=== PATIENT | female | born 1965 | race Caucasian/White ===

== ENCOUNTER 2016-04-19 00:49 | Emergency (ER) | payer SELFPAY ==
[~2016-04-19 00:49] MED LIST: DILA100C PO
== END 2016-04-19 00:57 | disposition left against medical advice (07) ==
LOC: NEDAMB 00:49
DX: R68.89 Other general symptoms and signs (principal)
CPT/HCPCS: 99281

== ENCOUNTER 2016-09-06 02:57 | Inpatient (IN) | payer SELFPAY ==
[~2016-09-06] VITALS: Ht 165.1 cm; Wt 72.7 kg
[2016-09-06 03:05] VITALS: BP 147/79; PULSE 84; RESP 18
[2016-09-06] MEDS ORDERED: SODIUM CHLORIDE 0.9% FLUSH 10 ML FLUSH IVF PRN (03:15)
[2016-09-06] MEDS ORDERED: LORazepam 2 MG/ML VIAL IVS ONE (03:15)
[2016-09-06] MEDS ORDERED: THIAMINE INJ 100 MG in SODIUM CHLORIDE 0.9% INJ 100 ML IV ONE (03:15)
[2016-09-06 03:17] LABS: AUTOMATED NEUTROPHIL # 2.8 TH/MM3 (1.8-7.7); BASOPHIL # 0.1 TH/MM3 (0-0.2); EOSINOPHIL # 0.1 TH/MM3 (0-0.4); EOSINOPHIL % 1.3 % (0.0-4.0); HEMATOCRIT 41.4 % (35.0-46.0); LYMPH % 46.1 % (9.0-44.0); MEAN CELL VOLUME 91.4 FL (80.0-100.0); MEAN CORPUSCULAR HEMOGLOBIN 30.4 PG (27.0-34.0); MEAN CORPUSCULAR HGB CONC 33.3 % (32.0-36.0); MONO % 6.9 % (0.0-8.0); NEUT % 43.7 % (16.0-70.0); PLATELET COUNT 107 TH/MM3 (150-450); RED BLOOD COUNT 4.53 MIL/MM3 (4.00-5.30); RED CELL DISTRIBUTION WIDTH 13.6 % (11.6-17.2); WHITE BLOOD COUNT 6.4 TH/MM3 (4.0-11.0)
[2016-09-06 03:18] LABS: HEMO FLAGS DIFF FINAL
--- NOTE | 2016-09-06 03:19 | PD ---
HPI Chief Complaint: seizure Time Seen by Provider: 03:01 Travel History International Travel<30 days: No Contact w/Intl Traveler<30days: No Traveled to known affect area: No History of Present Illness HPI The patient is a 50-year-old female who comes in having had a seizure for approximately 10 minutes duration. Apparently, she has been denied any kind of disability insurance and she cannot afford the Dilantin medication and has not been taking it as prescribed and has not taken it in the last 4 days. She has also been drinking alcohol. She does have a history of alcohol abuse. She has been drinking alcohol tonight. There apparently has been no head injury. The patient has no insurance, no primary care physician and no neurologist. PFSH Past Medical History Autoimmune Disease: Yes Cancer: No Cardiovascular Problems: No Diminished Hearing: No Endocrine: No Gastrointestinal Disorders: Yes GERD: No Genitourinary: No Headaches: Yes Immune Disorder: No Musculoskeletal: Yes Neurologic: Yes Psychiatric: No Respiratory: No Immunizations Current: Yes Migraines: Yes Seizures: Yes Ulcer: No Past Surgical History Hysterectomy: Yes Social History Alcohol Use: Yes (SOCIALLY) Tobacco Use: Yes (1PP3 DAYS) Substance Use: No Allergies-Medications (Allergen,Severity, Reaction): Coded Allergies: Penicillin (Verified Allergy, Severe, 03/03/16) Reported Meds & Prescriptions Reported Meds & Active Scripts Active Dilantin (Phenytoin Extended) 100 Mg Cap 100 Mg PO BID Review of Systems ROS Limitations: Intoxication, Altered Mental Status, Poor Historian Except as stated in HPI: all other systems reviewed are Neg Physical Exam Exam Limitations: Poor Historian Narrative GENERAL: The patient comes in actively seizing but the seizure ceased within a minute of the here in the emergency department. The vital signs show blood pressure 147/79 but are otherwise normal. SKIN: Focused skin assessment warm/dry. No needle tracks nor wrist slash [place] are present. HEAD: Atraumatic. Normocephalic. EYES: Pupils equal and round. No scleral icterus. No injection or drainage. ENT: No nasal bleeding or discharge. Mucous membranes pink and moist. NECK: Trachea midline. No JVD. CARDIOVASCULAR: Regular rate and rhythm. No murmur appreciated. RESPIRATORY: No accessory muscle use. Clear to auscultation. Breath sounds equal bilaterally. GASTROINTESTINAL: Abdomen soft, non-tender, nondistended. Hepatic and splenic margins not palpable. MUSCULOSKELETAL: No obvious deformities. No clubbing. No cyanosis. No edema. NEUROLOGICAL: Awake but lethargic and confused. No obvious cranial nerve deficits. Motor grossly within normal limits.slurred speech. Data Data Last Documented VS Vital Signs Date Time Temp Pulse Resp B/P Pulse Ox O2 Delivery O2 Flow Rate FiO2 09/06/16 03:07 09/06/16 03:05 18 98 09/06/16 03:05 84 Orders Complete Blood Count With Diff (09/06/16 03:01) Alcohol (Ethanol) (09/06/16 03:01) Phenytoin (Dilantin) (09/06/16 03:01) Drug Screen, Random Urine (09/06/16 03:01) Electrocardiogram (09/06/16 ) Ct Brain W/O Iv Contrast(Rout) (09/06/16 ) Blood Glucose (09/06/16 03:01) Ecg Monitoring (09/06/16 03:01) Iv Access Insert/Monitor (09/06/16 03:01) Oximetry (09/06/16 03:01) Comprehensive Metabolic Panel (09/06/16 03:01) Sodium Chloride 0.9% Flush (Ns Flush) (09/06/16 03:15) Lorazepam Inj (Ativan Inj) (09/06/16 03:15) Thiamine Inj (Thiamine Inj) (09/06/16 03:15) Urinalysis - C+S If Indicated (09/06/16 03:01) Fosphenytoin Inj (Cerebyx Inj) (09/06/16 03:30) Beta Hcg (Quant/Titer) (09/06/16 03:01) Urinary Catheter Insert/Apply (09/06/16 03:19) Labs Laboratory Tests Test 09/06/16 09/06/16 03:05 04:15 White Blood Count 6.4 TH/MM3 Red Blood Count 4.53 MIL/MM3 Hemoglobin 13.8 GM/DL Hematocrit 41.4 % Mean Corpuscular Volume 91.4 FL Mean Corpuscular Hemoglobin 30.4 PG Mean Corpuscular Hemoglobin 33.3 % Concent Red Cell Distribution Width 13.6 % Platelet Count 107 TH/MM3 Mean Platelet Volume 15.8 FL Neutrophils (%) (Auto) 43.7 % Lymphocytes (%) (Auto) 46.1 % Monocytes (%) (Auto) 6.9 % Eosinophils (%) (Auto) 1.3 % Basophils (%) (Auto) 2.0 % Neutrophils # (Auto) 2.8 TH/MM3 Lymphocytes # (Auto) 3.0 TH/MM3 Monocytes # (Auto) 0.4 TH/MM3 Eosinophils # (Auto) 0.1 TH/MM3 Basophils # (Auto) 0.1 TH/MM3 CBC Comment DIFF FINAL Differential Comment Sodium Level 148 MEQ/L Potassium Level 3.5 MEQ/L Chloride Level 116 MEQ/L Carbon Dioxide Level 20.7 MEQ/L Anion Gap 11 MEQ/L Blood Urea Nitrogen 20 MG/DL Creatinine 0.82 MG/DL Estimat Glomerular Filtration 73 ML/MIN Rate Random Glucose 106 MG/DL Calcium Level 8.5 MG/DL Total Bilirubin 0.1 MG/DL Aspartate Amino Transf 20 U/L (AST/SGOT) Alanine Aminotransferase 19 U/L (ALT/SGPT) Alkaline Phosphatase 110 U/L Total Protein 7.7 GM/DL Albumin 3.7 GM/DL Human Chorionic Gonadotropin, 8 MIU/ML Quant Phenytoin (Dilantin) Level LESS THAN 0.4 MCG/ML Ethyl Alcohol Level 131 MG/DL Urine Color STRAW Urine Turbidity CLEAR Urine pH 5.5 Urine Specific [place] 1.007 Urine Protein NEG mg/dL Urine Glucose (UA) NEG mg/dL Urine Ketones NEG mg/dL Urine Occult Blood NEG Urine Nitrite NEG Urine Bilirubin NEG Urine Leukocyte Esterase NEG Urine RBC 0-2 /hpf Urine WBC 0-2 /hpf Urine Squamous Epithelial 0-5 /hpf Cells Urine Bacteria NONE /hpf Microscopic Urinalysis Comment CATH-CULT NOT IND Urine Opiates Screen NEG Urine Barbiturates Screen NEG Urine Amphetamines Screen NEG Urine Benzodiazepines Screen NEG Urine Cocaine Screen NEG Urine Cannabinoids Screen POS [facility] Medical Decision Making Medical Screen Exam Complete: Yes Emergency Medical Condition: Yes Medical Record Reviewed: Yes Interpretation(s) The phenytoin level was essentially 0. The alcohol level is 131. The CBC is normal. The complete metabolic profile shows a sodium of 148, bicarbonate 20.7 , BUN of 20, GFR of 73 but is otherwise unremarkable. The beta-hCG is 8. The patient has had a hysterectomy and the low beta titer is likely from other causes. Differential Diagnosis Seizure disorder, hypoglycemia, electrolyte disorder, noncompliance to seizure medications, alcohol intoxication, other drug intoxication, head trauma Narrative Course It is now 0350 and the patient is awake, alert and cursing. She has noncompliance to seizure medications and alcohol intoxication. Plan: The patient will be admitted to the [facility] service. She is getting fosphenytoin at this time. She is already received 2 mg of Ativan IV. The patient is admitted to Dr. Whatley, I discussed the patient with him. The patient is at risk for continued seizures, she cannot afford her medication and will not purchase her medication even if she has prescriptions. She is also at risk for seizures later from alcohol withdrawal, the alcohol level was elevated here at 131. Physician Communication Physician Communication I discussed the patient with Dr. Whatley. Diagnosis Primary Impression: Seizure disorder Additional Impressions: Noncompliance with medications Alcohol abuse Admitting Information Admitting Physician Requests: Dominguez Veloz MD Sep 06, 2016 03:19
[2016-09-06 03:24] LABS: CHLORIDE 116 MEQ/L (98-107); POTASSIUM 3.5 MEQ/L (3.5-5.1); SODIUM (NA) 148 MEQ/L (136-145)
[2016-09-06 03:28] LABS: ANION GAP 11 MEQ/L (5-15); BICARBONATE 20.7 MEQ/L (21.0-32.0); BLOOD UREA NITROGEN 20 MG/DL (7-18)
[2016-09-06] MEDS ORDERED: FOSPHENYTOIN INJ 1,000 MGPE in SODIUM CHLORIDE 0.9% INJ 50 ML IV ONE (03:30)
[2016-09-06 03:31] LABS: ALT (GPT) 19 U/L (10-53); AST (GOT) 20 U/L (15-37); GLOMERULAR FILTRATION RATE 73 ML/MIN (>89)
[2016-09-06 03:32] LABS: TOTAL BILIRUBIN ADULT 0.1 MG/DL (0.2-1.0)
[2016-09-06 03:34] LABS: ALKALINE PHOSPHATASE 110 U/L (45-117)
[2016-09-06 03:36] LABS: BETA HCG QUANT 8 MIU/ML (0-5)
[2016-09-06 04:28] LABS: BLOOD, URINE NEG (NEG); GLUCOSE,URINE NEG (NEG); KETONE, URINE NEG (NEG); NITRITE,URINE NEG (NEG); PH, URINE 5.5 (5.0-8.5)
[2016-09-06 04:31] LABS: URINE COLOR STRAW (YELLW/STRAW)
[2016-09-06 04:34] LABS: COMMENT (UR) CATH-CULT NOT IND; CULTURE IF INDICATED CATH CULTURE NOT IND; RBC, URINE 0-2 /hpf (0-3); SQUAMOUS EPITHELIAL CELL URINE 0-5 /hpf (0-5); WBC, URINE 0-2 /hpf (0-5)
[2016-09-06 04:38] LABS: AMPHETAMINE, URINE NEG (NEG); BARBITURATES, URINE NEG (NEG); COCAINE, URINE NEG (NEG)
[2016-09-06] MEDS ORDERED: ASPI325T PO (04:42)
[2016-09-06] MEDS ORDERED: CAFF200T PO (04:42)
--- NOTE | 2016-09-06 04:48 | RADRPT ---
EXAM DATE/TIME: 09/06/2016 04:11 [facility] COMPARISON: CT BRAIN W/O CONTRAST, March 03, 2016, 23:23. INDICATIONS : Seizure. Altered mental status. RADIATION DOSE: 63.45 CTDIvol (mGy) MEDICAL HISTORY : Seizures. SURGICAL HISTORY : Hysterectomy. ENCOUNTER: Initial ACUITY: 1 day PAIN SCALE: 0/10 LOCATION: cranial TECHNIQUE: Multiple contiguous axial images were obtained of the head. Using automated exposure control and adj ustment of the mA and/or kV according to patient size, radiation dose was kept as low as reasonably a chievable to obtain optimal diagnostic quality images. DICOM format image data is available electro nically for review and comparison. FINDINGS: CEREBRUM: The ventricles are normal for age. No evidence of midline shift, mass lesion, hemorrhage or acute in farction. No extra-axial fluid collections are seen. POSTERIOR FOSSA: The cerebellum and brainstem are intact. The 4th ventricle is midline. The cerebellopontine angle i s unremarkable. EXTRACRANIAL: The visualized portion of the orbits is intact. SKULL: The calvaria is intact. No evidence of skull fracture. CONCLUSION: Normal examination. Antony Garvey MD on September 06, 2016 at 4:46 Board Certified Radiologist. This report was verified electronically.
--- NOTE | 2016-09-06 09:39 | EKG ---
Date Performed: 09/06/2016 Time Performed: 04:40:57 PTAGE: 50 years EKG: Sinus rhythm NORMAL ECG No significant change from prior electrocardiogram. PREVIOUS TRACING : 03/03/2016 22.50 DOCTOR: Arnel Lake Interpretating Date/Time 09/06/2016 09:37:05
== END 2016-09-06 05:22 | disposition left against medical advice (07) | DRG 101 ==
LOC: PHED 02:57 → PHEDA 04:49
PROVIDERS: ADMIT Hospitalist; ATTEND Hospitalist
DX: G40.909 Epilepsy, unspecified, not intractable, without status epilepticus (principal); F10.129 Alcohol abuse with intoxication, unspecified; F17.200 Nicotine dependence, unspecified, uncomplicated; Z91.14 Patient's other noncompliance with medication regimen
CPT/HCPCS: 70450; 80053; 80185; 80307; 81001; 84702; 85025; 93005; 96365; 96368; 96375; J2060; J3411; P9612; Q2009

== ENCOUNTER 2016-09-20 01:31 | Emergency (ER) | payer SELFPAY ==
[~2016-09-20] VITALS: Ht 165.1 cm; Wt 71.0 kg
[~2016-09-20 01:31] MED LIST changes: +ASPI325T PO; +CAFF200T PO
[2016-09-20 01:33] VITALS: BP 110/74; PULSE 72; RESP 16; O2SAT 97
[2016-09-20] MEDS ORDERED: SODIUM CHLOR 0.9% 1000 ML INJ 1,000 ML IV ONE (01:35)
[2016-09-20] MEDS ORDERED: SODIUM CHLORIDE 0.9% FLUSH 10 ML FLUSH IVF PRN (01:45)
[2016-09-20] MEDS ORDERED: LORazepam 2 MG/ML VIAL IVS ONE (01:45)
[2016-09-20] MEDS ORDERED: FOSPHENYTOIN INJ 1,000 MGPE in SODIUM CHLORIDE 0.9% INJ 50 ML IV ONE (02:00)
[2016-09-20 02:21] VITALS: BP 139/65; PULSE 74; RESP 20; O2SAT 99
[2016-09-20 02:27] LABS: AUTOMATED NEUTROPHIL # 3.3 TH/MM3 (1.8-7.7); BASOPHIL # 0.1 TH/MM3 (0-0.2); BASOPHIL % 0.9 % (0.0-2.0); EOSINOPHIL # 0.1 TH/MM3 (0-0.4); EOSINOPHIL % 1.9 % (0.0-4.0); HEMATOCRIT 40.5 % (35.0-46.0); LYMPHOCYTE # 3.3 TH/MM3 (1.0-4.8); MEAN CELL VOLUME 93.6 FL (80.0-100.0); MEAN CORPUSCULAR HEMOGLOBIN 32.2 PG (27.0-34.0); MEAN CORPUSCULAR HGB CONC 34.4 % (32.0-36.0); MONO % 6.9 % (0.0-8.0); NEUT % 45.3 % (16.0-70.0); PLATELET COUNT 88 TH/MM3 (150-450); RED BLOOD COUNT 4.33 MIL/MM3 (4.00-5.30); RED CELL DISTRIBUTION WIDTH 14.5 % (11.6-17.2); WHITE BLOOD COUNT 7.3 TH/MM3 (4.0-11.0)
--- NOTE | 2016-09-20 02:34 | PD ---
HPI Chief Complaint: Seizure Time Seen by Provider: 01:35 Travel History International Travel<30 days: No Contact w/Intl Traveler<30days: No Traveled to known affect area: No History of Present Illness HPI 50-year-old female presents with a witnessed generalized tonic-clonic seizure. Her family states she has history of seizure disorder and has been off of her medication for the past couple weeks. They state that she supposed to be on Dilantin. They state that she is not on it for insurance reasons and cost. They state that she's had multiple seizures off her medications. They deny other complaints for her. Patient cannot give me any history on initial evaluation. PFSH Past Medical History Narrative Medical By records Autoimmune Disease: Yes Depression: Yes Cancer: No Cardiovascular Problems: No Diminished Hearing: No Endocrine: No Gastrointestinal Disorders: Yes GERD: No Genitourinary: No Headaches: Yes Immune Disorder: No Musculoskeletal: Yes Neurologic: Yes Psychiatric: Yes Respiratory: No Immunizations Current: Yes Migraines: Yes Seizures: Yes Ulcer: No Tetanus Vaccination: > 5 Years Influenza Vaccination: No ?: Not : 0 Past Surgical History Narrative Surgical By records Gynecologic Surgery: Yes (total hysterectomy) Hysterectomy: Yes Social History Narrative Social History By records Alcohol Use: Yes (4-6 glasses of wine 2-3 nights a week) Tobacco Use: Yes (1/2 to 3/4 pack per day) Substance Use: Yes (occassional marijuana) Allergies-Medications (Allergen,Severity, Reaction): Coded Allergies: Penicillin (Verified Allergy, Severe, 09/20/16) Reported Meds & Prescriptions Reported Meds & Active Scripts Active Dilantin (Phenytoin Extended) 100 Mg Cap 100 Mg PO BID Review of Systems ROS Limitations: Other: (seizing) Physical Exam Narrative GENERAL: Well-nourished, well-developed patient. SKIN: Warm and dry. HEAD: Normocephalic and atraumatic. EYES: No injection or drainage. Pupils equal ENT: No nasal drainage noted. NECK: Supple, trachea midline. CARDIOVASCULAR: Regular rate and rhythm RESPIRATORY: Breath sounds equal bilaterally at apices. No accessory muscle use. GASTROINTESTINAL: Abdomen soft, nondistended. NEUROLOGICAL: Postictal after brief tonic-clonic seizure episode resolved when I walked in the room Data Data Last Documented VS Vital Signs Date Time Temp Pulse Resp B/P Pulse Ox O2 Delivery O2 Flow Rate FiO2 09/20/16 02:35 100 Nasal Cannula 2 09/20/16 02:21 74 20 139/65 Orders Complete Blood Count With Diff (09/20/16 01:35) Basic Metabolic Panel (Bmp) (09/20/16 01:35) Alcohol (Ethanol) (09/20/16 01:35) Phenytoin (Dilantin) (09/20/16 01:35) Drug Screen, Random Urine (09/20/16 01:35) Electrocardiogram (09/20/16 ) Blood Glucose (09/20/16 01:35) Ecg Monitoring (09/20/16 01:35) Iv Access Insert/Monitor (09/20/16 01:35) Oximetry (09/20/16 01:35) Sodium Chlor 0.9% 1000 Ml Inj (Ns 1000 M (09/20/16 01:35) Sodium Chloride 0.9% Flush (Ns Flush) (09/20/16 01:45) Lorazepam Inj (Ativan Inj) (09/20/16 01:45) Fosphenytoin Inj (Cerebyx Inj) (09/20/16 02:00) Lorazepam Inj (Ativan Inj) (09/20/16 03:30) Labs Laboratory Tests Test 09/20/16 09/20/16 02:10 04:35 White Blood Count 7.3 TH/MM3 Red Blood Count 4.33 MIL/MM3 Hemoglobin 13.9 GM/DL Hematocrit 40.5 % Mean Corpuscular Volume 93.6 FL Mean Corpuscular Hemoglobin 32.2 PG Mean Corpuscular Hemoglobin 34.4 % Concent Red Cell Distribution Width 14.5 % Platelet Count 88 TH/MM3 Mean Platelet Volume 12.2 FL Neutrophils (%) (Auto) 45.3 % Lymphocytes (%) (Auto) 45.0 % Monocytes (%) (Auto) 6.9 % Eosinophils (%) (Auto) 1.9 % Basophils (%) (Auto) 0.9 % Neutrophils # (Auto) 3.3 TH/MM3 Lymphocytes # (Auto) 3.3 TH/MM3 Monocytes # (Auto) 0.5 TH/MM3 Eosinophils # (Auto) 0.1 TH/MM3 Basophils # (Auto) 0.1 TH/MM3 CBC Comment AUTO DIFF Differential Comment AUTO DIFF CONFIRMED Platelet Estimate LOW Platelet Morphology Comment ENLARGED Ovalocytes 1+ Sodium Level 142 MEQ/L Potassium Level 3.3 MEQ/L Chloride Level 110 MEQ/L Carbon Dioxide Level 22.2 MEQ/L Anion Gap 10 MEQ/L Blood Urea Nitrogen 20 MG/DL Creatinine 0.83 MG/DL Estimat Glomerular Filtration 72 ML/MIN Rate Random Glucose 100 MG/DL Calcium Level 8.6 MG/DL Phenytoin (Dilantin) Level 0.7 MCG/ML Ethyl Alcohol Level 181 MG/DL Urine Opiates Screen NEG Urine Barbiturates Screen NEG Urine Amphetamines Screen NEG Urine Benzodiazepines Screen NEG Urine Cocaine Screen NEG Urine Cannabinoids Screen POS MDM Medical Decision Making Medical Screen Exam Complete: Yes Emergency Medical Condition: Yes Medical Record Reviewed: Yes (past history confirmed) Interpretation(s) CBC & BMP Diagram 09/20/16 02:10 alcohol is 181 Dilantin level is subtherapeutic Differential Diagnosis Off medication, electrolyte abnormality, seizure disorder Narrative Course Will check blood work and dose with 1 mg of Ativan to decrease seizure threshold and loaded with Dilantin no further seizure here, support here at bedside that will watch over patient, dilantin loaded and prescription refilled, clear speech, clinically sober, Patient denies any new complaints, all questions answered. Patient knows that follow up is incumbent on them and to return to the emergency room immediately if new or worsening symptoms develop. Patient given strict return precautions, vitals reviewed and are normal, agrees to further workup as an outpatient. Diagnosis Primary Impression: Seizure disorder Additional Impression: Noncompliance with medications Patient Instructions: General Instructions Additional Instructions: fill and take your seizure medication, limit alcohol use, set up a primary care physician and neurologist for follow-up on Thursday, return with any emergent need Med/Other Pt SpecificInfo: Prescription(s) given Scripts Phenytoin Extended (Dilantin)100 Mg [id number] Mg PO BID #60 CAP Ref 0 Prov:Cailin Wong MD 09/20/16 Disposition: 01 DISCHARGE HOME Condition: Stable Cailin Wong MD Sep 20, 2016 02:34
[2016-09-20 02:35] VITALS: O2SAT 100
[2016-09-20 02:53] LABS: BICARBONATE 22.2 MEQ/L (21.0-32.0); POTASSIUM 3.3 MEQ/L (3.5-5.1)
[2016-09-20 02:56] LABS: HEMO FLAGS AUTO DIFF
[2016-09-20 02:58] LABS: OVALOCYTES 1+ (NORMAL)
[2016-09-20 03:00] LABS: PLATELET ESTIMATE SMEAR LOW (NORMAL); PLATELET MORPHOLOGY ENLARGED (NORMAL); SCAN/DIFF AUTO DIFF CONFIRMED
[2016-09-20] MEDS ORDERED: LORazepam 2 MG/ML VIAL IV PUSH ONE (03:30)
[2016-09-20] MEDS ORDERED: DILA100C PO (04:46)
[2016-09-20 04:54] LABS: AMPHETAMINE, URINE NEG (NEG); BARBITURATES, URINE NEG (NEG); COCAINE, URINE NEG (NEG)
--- NOTE | 2016-09-20 12:39 | EKG ---
Date Performed: 09/20/2016 Time Performed: 02:09:26 PTAGE: 50 years EKG: Sinus rhythm Compared to prior tracing no significant change NORMAL ECG PREVIOUS TRACING : 09/06/16 @ 0440 DOCTOR: Jasper Alaniz Interpretating Date/Time 09/20/2016 12:44:16
== END 2016-09-20 04:50 | disposition home or self-care (01) ==
LOC: NEPC 01:31
DX: G40.409 Other generalized epilepsy and epileptic syndromes, not intractable, without status epilepticus (principal); F32.9 Major depressive disorder, single episode, unspecified; F17.200 Nicotine dependence, unspecified, uncomplicated; Z79.899 Other long term (current) drug therapy; Z91.14 Patient's other noncompliance with medication regimen
CPT/HCPCS: 80048; 80185; 80307; 85025; 93005; 96365; 96375; 99284; J2060; J7030; Q2009

== ENCOUNTER 2016-10-05 02:42 | Emergency (ER) | payer SELFPAY ==
[~2016-10-05] VITALS: Ht 165.1 cm; Wt 70.0 kg
[~2016-10-05 02:42] MED LIST changes: -ASPI325T PO; -CAFF200T PO
[2016-10-05 02:45] VITALS: BP 153/74; PULSE 96; RESP 18; O2SAT 96
[2016-10-05] MEDS ORDERED: SODIUM CHLOR 0.9% 1000 ML INJ 1,000 ML IV ONE (03:00)
--- NOTE | 2016-10-05 03:04 | PD ---
HPI Chief Complaint: Medical Clearance Time Seen by Provider: 02:53 Travel History International Travel<30 days: No Contact w/Intl Traveler<30days: No Traveled to known affect area: No History of Present Illness HPI So 51 year-old woman who presents to the emergency department because after she was drinking at the bar she started to hallucinate and freak out. She reports that she had 4 glasses of wine. She is worried the last also wanted she got from a stranger alarm if had drugs on it. EMS reports that the patient was flailing around and hitting herself in the head. reports that she was hallucinating and seeing "ghosts". She has a history of epilepsy and alcohol abuse. Records show she was in taken Dilantin for a while because of insurance reasons. She states she's been taking it for the past several days. No other complaints. No history of previous similar episodes. History Past Medical History Narrative Medical Epilepsy Tetanus Vaccination: Unknown Influenza Vaccination: No : 0 Social History Alcohol Use: Yes (4-6 glasses of wine 2-3 nights a week) Tobacco Use: Yes (1/2 to 3/4 pack per day) Allergies-Medications (Allergen,Severity, Reaction): Coded Allergies: Penicillin (Verified Allergy, Severe, 10/05/16) Reported Meds & Prescriptions Reported Meds & Active Scripts Active Dilantin (Phenytoin Extended) 100 Mg Cap 100 Mg PO BID Review of Systems Except as stated in HPI: all other systems reviewed are Neg Physical Exam Narrative GENERAL: Well-appearing 51 year-old woman, no acute distress. SKIN: Focused skin assessment warm/dry. HEAD: Atraumatic. Normocephalic. CARDIOVASCULAR: Regular rate and rhythm. No murmur appreciated. RESPIRATORY: No accessory muscle use. Clear to auscultation. Breath sounds equal bilaterally. GASTROINTESTINAL: Abdomen soft, non-tender, nondistended. Hepatic and splenic margins not palpable. MUSCULOSKELETAL: No obvious deformities. No clubbing. No cyanosis. No edema. NEUROLOGICAL: Awake and alert. No obvious cranial nerve deficits. Motor grossly within normal limits. Normal speech. PSYCHIATRIC: Anxious but calm. Data Data Last Documented VS Vital Signs Date Time Temp Pulse Resp B/P Pulse Ox O2 Delivery O2 Flow Rate FiO2 10/05/16 02:45 96 18 153/74 96 Orders Complete Blood Count With Diff (10/05/16 02:51) Basic Metabolic Panel (Bmp) (10/05/16 02:51) Alcohol (Ethanol) (10/05/16 02:51) Valproic Acid (Depakene) (10/05/16 02:51) Iv Access Insert/Monitor (10/05/16 02:51) Sodium Chlor 0.9% 1000 Ml Inj (Ns 1000 M (10/05/16 03:00) Drug Screen, Random Urine (10/05/16 02:55) Lorazepam Inj (Ativan Inj) (10/05/16 03:06) Lorazepam Inj (Ativan Inj) (10/05/16 03:30) Acetaminophen (Tylenol) (10/05/16 04:00) Labs Laboratory Tests Test 10/05/16 03:00 White Blood Count 4.8 TH/MM3 Red Blood Count 4.10 MIL/MM3 Hemoglobin 13.1 GM/DL Hematocrit 38.6 % Mean Corpuscular Volume 94.2 FL Mean Corpuscular Hemoglobin 31.9 PG Mean Corpuscular Hemoglobin 33.8 % Concent Red Cell Distribution Width 14.0 % Platelet Count 92 TH/MM3 Mean Platelet Volume 13.6 FL Neutrophils (%) (Auto) 56.6 % Lymphocytes (%) (Auto) 33.7 % Monocytes (%) (Auto) 6.6 % Eosinophils (%) (Auto) 1.9 % Basophils (%) (Auto) 1.2 % Neutrophils # (Auto) 2.7 TH/MM3 Lymphocytes # (Auto) 1.6 TH/MM3 Monocytes # (Auto) 0.3 TH/MM3 Eosinophils # (Auto) 0.1 TH/MM3 Basophils # (Auto) 0.1 TH/MM3 CBC Comment DIFF FINAL Differential Comment Sodium Level 145 MEQ/L Potassium Level 3.5 MEQ/L Chloride Level 116 MEQ/L Carbon Dioxide Level 19.5 MEQ/L Anion Gap 10 MEQ/L Blood Urea Nitrogen 19 MG/DL Creatinine 0.66 MG/DL Estimat Glomerular Filtration 94 ML/MIN Rate Random Glucose 88 MG/DL Calcium Level 8.2 MG/DL Urine Opiates Screen NEG Urine Barbiturates Screen NEG Valproic Acid (Depakene) Level LESS THAN 3 MCG/ML Urine Amphetamines Screen NEG Urine Benzodiazepines Screen NEG Urine Cocaine Screen NEG Urine Cannabinoids Screen POS Ethyl Alcohol Level 147 MG/DL MDM Medical Decision Making Medical Screen Exam Complete: Yes Emergency Medical Condition: Yes Interpretation(s) LABS: CBC is unremarkable. CMP is generally unremarkable. Bicarbonate is 19.5. BUN 19. Valproic acid is negative. Differential Diagnosis Anxiety attack, intoxication, atypical seizure, psychiatric disease, other Narrative Course Medical decision making Is a 50 year-old woman with some kind of unusual episode after drinking. I think atypical seizure is unlikely. She is worried that some I put something in her drink. I think she is probably intoxicated and had an anxiety attack. She seems a little bit bizarre to begin with. Nonetheless, she received 2 mg of Ativan in route and is calm and collected now. We'll check some basic labs. Recommend outpatient follow-up. 3:15 AM: Patient had a unusual episode here where she started snoring and then sat up stating "I have to go". She then displayed and aggregate of bizarre behaviors including some convulsions, some eye movement, some bizarre impulsive trying to get out of bed behaviors. None of this seemed to particularly suggestive of a seizure to me. She maintained a level where tenderness throughout the episode and would respond to questions and occasionally resist exam. Symptoms started with her back in the room. She continued to be somewhat agitated and so she was given a third milligram of Ativan. Review of records shows 2 previous EEGs in March and May of last year after reported seizure like episodes that were both essentially negative. FINAL: 5 AM, patient still displaying intermittent bizarre symptoms possibly unusual partial seizures, possibly psychiatric or behavioral in nature. Patient insisting on being discharged. I think she should stay and be evaluated by neurology for possible atypical seizure activity. She however does not appear to be a minute threat to herself or others, and therefore do not think we can hold her involuntarily. My overall impression again is that these are not likely to be epileptogenic. I inadvertently ordered a valproic acid level onset of the phenytoin level. She has not been taking the phenytoin regularly. I do not think it as a cause of her symptoms. I recommended that she take her phenytoin regularly as prescribed and get a dose check to determine if this is an appropriate dose for her. Diagnosis Primary Impression: Alcohol intoxication delirium Additional Instructions: Avoid excessive alcohol use. Return to the emergency department for any new or worsening symptoms. Med/Other Pt SpecificInfo: No Change to Meds Disposition: 01 DISCHARGE HOME Condition: Stable Antony Toledo MD Oct 05, 2016 03:04
[2016-10-05] MEDS ORDERED: LORazepam 2 MG/ML VIAL ONE (03:06)
[2016-10-05 03:20] LABS: AUTOMATED NEUTROPHIL # 2.7 TH/MM3 (1.8-7.7); BASOPHIL # 0.1 TH/MM3 (0-0.2); BASOPHIL % 1.2 % (0.0-2.0); EOSINOPHIL # 0.1 TH/MM3 (0-0.4); EOSINOPHIL % 1.9 % (0.0-4.0); HEMATOCRIT 38.6 % (35.0-46.0); LYMPH % 33.7 % (9.0-44.0); LYMPHOCYTE # 1.6 TH/MM3 (1.0-4.8); MEAN CELL VOLUME 94.2 FL (80.0-100.0); MEAN CORPUSCULAR HEMOGLOBIN 31.9 PG (27.0-34.0); MEAN CORPUSCULAR HGB CONC 33.8 % (32.0-36.0); MONO % 6.6 % (0.0-8.0); NEUT % 56.6 % (16.0-70.0); PLATELET COUNT 92 TH/MM3 (150-450); WHITE BLOOD COUNT 4.8 TH/MM3 (4.0-11.0)
[2016-10-05 03:22] LABS: HEMO FLAGS DIFF FINAL
[2016-10-05] MEDS ORDERED: LORazepam 2 MG/ML VIAL IV PUSH ONE (03:30)
[2016-10-05 03:38] LABS: AMPHETAMINE, URINE NEG (NEG); BARBITURATES, URINE NEG (NEG); COCAINE, URINE NEG (NEG)
[2016-10-05 03:39] LABS: ANION GAP 10 MEQ/L (5-15); BICARBONATE 19.5 MEQ/L (21.0-32.0); BLOOD UREA NITROGEN 19 MG/DL (7-18); CHLORIDE 116 MEQ/L (98-107); GLOMERULAR FILTRATION RATE 94 ML/MIN (>89); POTASSIUM 3.5 MEQ/L (3.5-5.1); SODIUM (NA) 145 MEQ/L (136-145)
[2016-10-05] MEDS ORDERED: ACETAMINOPHEN 500 MG CPLT PO ONE (04:00)
[2016-10-05 05:14] VITALS: BP 143/65
== END 2016-10-05 05:45 | disposition home or self-care (01) ==
LOC: NEPC 02:42
DX: F10.121 Alcohol abuse with intoxication delirium (principal); F17.200 Nicotine dependence, unspecified, uncomplicated; G40.909 Epilepsy, unspecified, not intractable, without status epilepticus; Y90.6 Blood alcohol level of 120-199 mg/100 ml
CPT/HCPCS: 80048; 80164; 80307; 85025; 96374; 99284; J2060; J7030

== ENCOUNTER 2016-10-09 13:21 | Emergency (ER) | payer SELFPAY ==
[~2016-10-09] VITALS: Ht 165.1 cm; Wt 75.0 kg
[2016-10-09 13:23] VITALS: BP 185/80; PULSE 80; RESP 24; TEMP 98.1; O2SAT 99
--- NOTE | 2016-10-09 13:30 | PD ---
Physical Exam Time Seen by Provider: 13:30 Narrative 51 y/o female here with h/a, n/v/d for 9 days. Seen here 10/05 for alcohol induced delirium. Vital signs reviewed. seen at triage desk. Awaiting bed placement. Data Data Last Documented VS Vital Signs Date Time Temp Pulse Resp B/P Pulse Ox O2 Delivery O2 Flow Rate FiO2 10/09/16 13:23 98.1 80 24 185/80 99 Room Air [facility] Medical Record Reviewed: Yes Supervised Visit with JOSE: No Lobo Briceno Oct 09, 2016 13:30
[2016-10-09 15:29] LABS: AUTOMATED NEUTROPHIL # 3.2 TH/MM3 (1.8-7.7); BASOPHIL # 0.1 TH/MM3 (0-0.2); BASOPHIL % 1.3 % (0.0-2.0); EOSINOPHIL # 0.1 TH/MM3 (0-0.4); EOSINOPHIL % 1.1 % (0.0-4.0); HEMATOCRIT 45.7 % (35.0-46.0); LYMPH % 25.1 % (9.0-44.0); LYMPHOCYTE # 1.2 TH/MM3 (1.0-4.8); MEAN CELL VOLUME 95.6 FL (80.0-100.0); MEAN CORPUSCULAR HEMOGLOBIN 31.2 PG (27.0-34.0); MEAN CORPUSCULAR HGB CONC 32.6 % (32.0-36.0); NEUT % 65.5 % (16.0-70.0); PLATELET COUNT 104 TH/MM3 (150-450); RED BLOOD COUNT 4.78 MIL/MM3 (4.00-5.30); RED CELL DISTRIBUTION WIDTH 13.9 % (11.6-17.2); WHITE BLOOD COUNT 4.9 TH/MM3 (4.0-11.0)
[2016-10-09 15:37] LABS: HEMO FLAGS AUTO DIFF
[2016-10-09 15:45] LABS: APTT (PATIENT) 27.5 SEC (24.3-30.1); PROTHROMBIN TIME - PATIENT 10.7 SEC (9.8-11.6)
[2016-10-09 15:47] LABS: BICARBONATE 24.2 MEQ/L (21.0-32.0); POTASSIUM 3.9 MEQ/L (3.5-5.1)
--- NOTE | 2016-10-09 16:00 | PD ---
HPI Chief Complaint: Headache Time Seen by Provider: 14:40 Travel History International Travel<30 days: No Contact w/Intl Traveler<30days: No Traveled to known affect area: No History of Present Illness HPI 51yo F with c/o headache for 9 days. Pt states she has a history of seizure since she was 2 yo but has not been following up with neurologist for years. Pt receives her dilantin from the emergency department. She states headache is constant, from front to back and associated with nausea, photophobia. Pt was seen at [facility] on 10/05/16 for bizarre behavior after drinking and hallucinating at a bar. It was thought that the behavior might be psych related but pt has not had a neurology evaluation in a long time. Denies any fever, neck pain, chest pain, sob, n/v, abdominal pain, focal weakness or numbness. PFSH Past Medical History Autoimmune Disease: Yes Depression: Yes Cancer: No Cardiovascular Problems: No Diminished Hearing: No Endocrine: No Gastrointestinal Disorders: Yes GERD: No Genitourinary: No Headaches: Yes Immune Disorder: No Musculoskeletal: Yes Neurologic: Yes Psychiatric: Yes Respiratory: No Immunizations Current: Yes Migraines: Yes Seizures: Yes (epilepsy) Ulcer: No ?: Not : 0 Past Surgical History Gynecologic Surgery: Yes (total hysterectomy) Hysterectomy: Yes Social History Alcohol Use: Yes (4 glasses of wine 2-3 nights a week) Tobacco Use: Yes (1/2 to 3/4 pack per day) Substance Use: Yes (occassional marijuana) Allergies-Medications (Allergen,Severity, Reaction): Coded Allergies: Penicillin (Verified Allergy, Severe, 10/05/16) Reported Meds & Prescriptions Reported Meds & Active Scripts Active Dilantin (Phenytoin Extended) 100 Mg Cap 100 Mg PO BID Review of Systems Except as stated in HPI: all other systems reviewed are Neg Physical Exam Narrative GENERAL: 51yo F in mild distress. SKIN: Focused skin assessment warm/dry. HEAD: Atraumatic. Normocephalic. EYES: Pupils equal and round at 4mm bilaterally. No scleral icterus. No injection or drainage. ENT: No nasal bleeding or discharge. Mucous membranes pink and moist. NECK: Trachea midline. No JVD. CARDIOVASCULAR: Regular rate and rhythm. No murmur appreciated. RESPIRATORY: No accessory muscle use. Clear to auscultation. Breath sounds equal bilaterally. GASTROINTESTINAL: Abdomen soft, non-tender, nondistended. Hepatic and splenic margins not palpable. MUSCULOSKELETAL: No obvious deformities. No clubbing. No cyanosis. No edema. NEUROLOGICAL: Awake and alert. Lateral rectus palsy in right eye. Sensation equal in bilateral arms and legs. Muscle strength 5/5. Motor grossly within normal limits. Normal speech. PSYCHIATRIC: Appropriate mood and affect; insight and judgment normal. Data Data Last Documented VS Vital Signs Date Time Temp Pulse Resp B/P Pulse Ox O2 Delivery O2 Flow Rate FiO2 10/09/16 14:35 18 99 Room Air 10/09/16 13:23 98.1 80 185/[address] Brain W/O Iv Contrast(Rout) (10/09/16 ) Complete Blood Count With Diff (10/09/16 14:51) Basic Metabolic Panel (Bmp) (10/09/16 14:51) Prothrombin Time / Inr (Pt) (10/09/16 14:51) Act Partial Throm Time (Ptt) (10/09/16 14:51) Prochlorperazine Inj (Compazine Inj) (10/09/16 17:00) Dexamethasone Inj (Decadron Inj) (10/09/16 17:00) Labs Laboratory Tests Test 10/09/16 15:08 White Blood Count 4.9 TH/MM3 Red Blood Count 4.78 MIL/MM3 Hemoglobin 14.9 GM/DL Hematocrit 45.7 % Mean Corpuscular Volume 95.6 FL Mean Corpuscular Hemoglobin 31.2 PG Mean Corpuscular Hemoglobin 32.6 % Concent Red Cell Distribution Width 13.9 % Platelet Count 104 TH/MM3 Mean Platelet Volume 12.7 FL Neutrophils (%) (Auto) 65.5 % Lymphocytes (%) (Auto) 25.1 % Monocytes (%) (Auto) 7.0 % Eosinophils (%) (Auto) 1.1 % Basophils (%) (Auto) 1.3 % Neutrophils # (Auto) 3.2 TH/MM3 Lymphocytes # (Auto) 1.2 TH/MM3 Monocytes # (Auto) 0.3 TH/MM3 Eosinophils # (Auto) 0.1 TH/MM3 Basophils # (Auto) 0.1 TH/MM3 CBC Comment AUTO DIFF Differential Comment AUTO DIFF CONFIRMED Platelet Estimate LOW Platelet Morphology Comment ENLARGED Prothrombin Time 10.7 SEC Prothromb Time International 1.0 RATIO Ratio Activated Partial 27.5 SEC Thromboplast Time Sodium Level 141 MEQ/L Potassium Level 3.9 MEQ/L Chloride Level 109 MEQ/L Carbon Dioxide Level 24.2 MEQ/L Anion Gap 8 MEQ/L Blood Urea Nitrogen 12 MG/DL Creatinine 0.68 MG/DL Estimat Glomerular Filtration 91 ML/MIN Rate Random Glucose 88 MG/DL Calcium Level 8.8 MG/DL MDM Medical Decision Making Medical Screen Exam Complete: Yes Emergency Medical Condition: Yes Differential Diagnosis Migraine headache vs. cerebral venous thrombosis vs. ICH vs. intracranial mass Narrative Course 51yo F with history of migraines here with headache for 9 days. Only abnormality is lateral rectus palsy in right eye on exam. Labs reviewed, and unremarkable. I initially ordered CT brain and CTV brain to make sure that there is no cerebral venous thrombus but after discussing with radiologist, decided that depending on what the CT brain showed, an MRI brain after would be a better study. At the time my shift ended, pt has not had CT brain completed so sign out to next team to follow up with CT brain results and obtain MRI brain if CT brain negative and disposition. Pt also given compazine and dexamethasone for headache. Diagnosis Primary Impression: Headache Qualified Code: R51 - Acute nonintractable headache, unspecified headache type Nancy Rojas DO Oct 09, 2016 16:00
[2016-10-09 16:15] LABS: PLATELET ESTIMATE SMEAR LOW (NORMAL); PLATELET MORPHOLOGY ENLARGED (NORMAL); SCAN/DIFF AUTO DIFF CONFIRMED
[2016-10-09] MEDS ORDERED: DEXAMETHASONE SOD PHOS 20 MG/5 ML VIAL IV PUSH ONE (17:00)
[2016-10-09] MEDS ORDERED: PROCHLORPERAZINE INJ 10 MG/2 ML VIAL IV PUSH ONE (17:00)
--- NOTE | 2016-10-09 17:49 | RADRPT ---
EXAM DATE/TIME: 10/09/2016 17:10 [facility] COMPARISON: CT BRAIN W/O CONTRAST, September 06, 2016, 4:11. INDICATIONS : Headache with lateral rectus palsy in right eye. RADIATION DOSE: 56.35 CTDIvol (mGy) MEDICAL HISTORY : Seizures. SURGICAL HISTORY : None. ENCOUNTER: Initial ACUITY: 2 weeks PAIN SCALE: 5/10 LOCATION: Bilateral frontal TECHNIQUE: Multiple contiguous axial images were obtained of the head. Using automated exposure control and adj ustment of the mA and/or kV according to patient size, radiation dose was kept as low as reasonably a chievable to obtain optimal diagnostic quality images. DICOM format image data is available electro nically for review and comparison. FINDINGS: CEREBRUM: The ventricles are normal for age. No evidence of midline shift, mass lesion, hemorrhage or acute in farction. No extra-axial fluid collections are seen. POSTERIOR FOSSA: The cerebellum and brainstem are intact. The 4th ventricle is midline. The cerebellopontine angle i s unremarkable. EXTRACRANIAL: The visualized portion of the orbits is intact. SKULL: The calvaria is intact. No evidence of skull fracture. CONCLUSION: 1. No acute intracranial abnormalities. Remote lacunar infarct in the anterior right basal ganglia. Edson Larios MD on October 09, 2016 at 17:45 Board Certified Radiologist. This report was verified electronically.
== END 2016-10-09 15:21 | disposition left against medical advice (07) ==
LOC: NEPD 13:21
DX: R51 Headache (principal); F10.10 Alcohol abuse, uncomplicated; F17.290 Nicotine dependence, other tobacco product, uncomplicated; F12.10 Cannabis abuse, uncomplicated
CPT/HCPCS: 70450; 80048; 85025; 85610; 85730; 99284; J0780; J1100

== ENCOUNTER 2017-02-14 01:58 | Emergency (ER) | payer SELFPAY ==
[~2017-02-14] VITALS: Ht 162.6 cm; Wt 63.6 kg
[2017-02-14 01:58] VITALS: BP 155/82; PULSE 87; RESP 16; O2SAT 98
[2017-02-14] MEDS ORDERED: SODIUM CHLOR 0.9% 1000 ML INJ 1,000 ML IV ONE (02:10)
[2017-02-14] MEDS ORDERED: SODIUM CHLORIDE 0.9% FLUSH 10 ML FLUSH IVF PRN (02:15)
[2017-02-14] MEDS ORDERED: THIAMINE INJ 100 MG in SODIUM CHLORIDE 0.9% INJ 100 ML IV ONE (02:15)
--- NOTE | 2017-02-14 02:17 | PD ---
HPI Chief Complaint: seizure Time Seen by Provider: 02:07 Travel History International Travel<30 days: No Contact w/Intl Traveler<30days: No Traveled to known affect area: No History of Present Illness HPI 51-year-old female presents to the emergency department by EMS transport for evaluation of seizure activity. Patient reportedly has history of epilepsy and is prescribed Dilantin. at bedside reports patient is not compliant. Patient was drinking alcohol tonight shortly before symptoms began. Last dose of Dilantin was evening 200 mg. Paramedics report that she was in the car in the passenger seat when her was pulled over by police for driving too fast and they were called to the scene for patient having seizure- type activity. Upon medical assistant float arrival patient was jerking her arms and legs but in a random and erratic way lifting her arms over her head and causing them over her chest. Due to the persistent duration of the behavior she did receive Ativan 2 mg IM. Reportedly the activity resolved. IV access was not able to be obtained. No evidence of incontinence or intraoral trauma. According to paramedics patient was in the car and no trauma was noted. According to the has had no recent injury or fall. Random glucose was 98. PFSH Past Medical History Narrative Medical Seizure migraines hysterectomy alcohol use tobacco use substance use nursing notes reviewed Autoimmune Disease: Yes Depression: Yes Cancer: No Cardiovascular Problems: No Diminished Hearing: No Endocrine: No Gastrointestinal Disorders: Yes GERD: No Genitourinary: No Headaches: Yes Immune Disorder: No Musculoskeletal: Yes Neurologic: Yes Psychiatric: Yes Respiratory: No Immunizations Current: Yes Migraines: Yes Seizures: Yes (epilepsy) Ulcer: No : 0 Past Surgical History Gynecologic Surgery: Yes (total hysterectomy) Hysterectomy: Yes Social History Alcohol Use: Yes (4 glasses of wine 2-3 nights a week) Tobacco Use: Yes (1/2 to 3/4 pack per day) Substance Use: Yes (occassional marijuana) Allergies-Medications (Allergen,Severity, Reaction): Coded Allergies: penicillin G (Unverified Allergy, Severe, 10/21/16) Reported Meds & Prescriptions Reported Meds & Active Scripts Active Dilantin (Phenytoin Extended) 100 Mg Cap 100 Mg PO BID Review of Systems Except as stated in HPI: all other systems reviewed are Neg Physical Exam Narrative GENERAL: Well-developed well-nourished female in no acute distress no respiratory distress;E:4, V:1, M:4 SKIN: Warm and dry. HEAD: Atraumatic. Normocephalic. EYES: Pupils equal and round. No scleral icterus. No injection or drainage. ENT: No nasal bleeding or discharge. Mucous membranes pink and moist. NECK: Trachea midline. No JVD. CARDIOVASCULAR: Regular rate and rhythm. RESPIRATORY: No accessory muscle use. Clear to auscultation. Breath sounds equal bilaterally. GASTROINTESTINAL: Abdomen soft, non-tender, nondistended. Hepatic and splenic margins not palpable. MUSCULOSKELETAL: Extremities without clubbing, cyanosis, or edema. No obvious deformities. NEUROLOGICAL: Awake and alert. No obvious cranial nerve deficits. Motor grossly within normal limits. Five out of 5 muscle strength in the arms and legs. Normal speech. PSYCHIATRIC: Appropriate mood and affect; insight and judgment normal. Data Data Last Documented VS Vital Signs Date Time Temp Pulse Resp B/P (MAP) Pulse Ox O2 Delivery O2 Flow Rate FiO2 02/14/17 01:58 87 16 155/82 (106) 98 Orders Orders Complete Blood Count With Diff (02/14/17 02:10) Alcohol (Ethanol) (02/14/17 02:10) Phenytoin (Dilantin) (02/14/17 02:10) Drug Screen, Random Urine (02/14/17 02:10) Blood Glucose (02/14/17 02:10) Ecg Monitoring (02/14/17 02:10) Iv Access Insert/Monitor (02/14/17 02:10) Oximetry (02/14/17 02:10) Comprehensive Metabolic Panel (02/14/17 02:10) Sodium Chlor 0.9% 1000 Ml Inj (Ns 1000 M (02/14/17 02:10) Sodium Chloride 0.9% Flush (Ns Flush) (02/14/17 02:15) Urinalysis - C+S If Indicated (02/14/17 02:10) Magnesium (Mg) (02/14/17 02:10) Thiamine Inj (Thiamine Inj) (02/14/17 02:15) Cath For Specimen (02/14/17 02:10) Ammonia (02/14/17 02:12) Labs Laboratory Tests Test 02/14/17 02:15 White Blood Count 6.8 TH/MM3 Red Blood Count 4.35 MIL/MM3 Hemoglobin 13.4 GM/DL Hematocrit 41.3 % Mean Corpuscular Volume 94.9 FL Mean Corpuscular Hemoglobin 30.9 PG Mean Corpuscular Hemoglobin Concent 32.5 % Red Cell Distribution Width 13.1 % Platelet Count 75 TH/MM3 Mean Platelet Volume 10.9 FL Neutrophils (%) (Auto) 56.5 % Lymphocytes (%) (Auto) 35.9 % Monocytes (%) (Auto) 5.0 % Eosinophils (%) (Auto) 1.6 % Basophils (%) (Auto) 1.0 % Neutrophils # (Auto) 3.8 TH/MM3 Lymphocytes # (Auto) 2.5 TH/MM3 Monocytes # (Auto) 0.3 TH/MM3 Eosinophils # (Auto) 0.1 TH/MM3 Basophils # (Auto) 0.1 TH/MM3 CBC Comment AUTO DIFF Differential Comment AUTO DIFF CONFIRMED Platelet Estimate LOW Platelet Morphology Comment GIANT Red Cell Morphology Comment NORMAL Blood Urea Nitrogen 15 MG/DL Creatinine 0.70 MG/DL Random Glucose 102 MG/DL Total Protein 7.4 GM/DL Albumin 3.5 GM/DL Calcium Level 8.3 MG/DL Magnesium Level 2.4 MG/DL Alkaline Phosphatase 120 U/L Aspartate Amino Transf (AST/SGOT) 17 U/L Alanine Aminotransferase (ALT/SGPT) 15 U/L Total Bilirubin 0.1 MG/DL Sodium Level 142 MEQ/L Potassium Level 3.5 MEQ/L Chloride Level 112 MEQ/L Carbon Dioxide Level 22.1 MEQ/L Anion Gap 8 MEQ/L Estimat Glomerular Filtration Rate 88 ML/MIN Ammonia 38 MCMOL/L Phenytoin (Dilantin) Level 2.0 MCG/ML Ethyl Alcohol Level 199 MG/DL [facility] Medical Decision Making Medical Screen Exam Complete: Yes Emergency Medical Condition: Yes Medical Record Reviewed: Yes Interpretation(s) CBC within normal limits Complete metabolic panel values grossly within normal range Serum ammonia level 38, elevated Differential Diagnosis Seizure, medication noncompliance, alcohol abuse Narrative Course Patient arrived placed on stretcher with seizure precaution padding in place IV access obtained while obtaining IV access patient developed episode of jerking and intermittent stretching her for her arms and kicking; this resolved no additional medication administered specimens collected and sent for resulting Patient awakened oriented to person place time and events refusing any further intervention stating she does not want any Dilantin she does not want any blood work she does not want any type of imaging she wants to leave. Spouse is at bedside. Patient states that she has not taken her evening dose of Dilantin and when she gets home she will take her medication. Patient encouraged to stay long enough for Dilantin level to be obtained to see if she is in therapeutic range and just needs a dose of her own medication at home to discontinue alcohol use or if she needs IV medication in the emergency department. Patient states she wants to leave AGAINST MEDICAL ADVICE and she does not care what her level is and she is willing to take responsibility for her decisions. Patient is oriented to person place time and events. Risks and benefits have been discussed in detail with the patient was spouse at bedside and patient has decided to leave AGAINST MEDICAL ADVICE. AMA: The risks of leaving against medical advice without further evaluation treatment were discussed with the patient. These risks include cardiac dysfunction, cardiac dysrhythmia, possible heart attack, possible stroke or . The patient indicated understanding of these risks and appeared to have the capacity to make this decision. After leaving AMA patient is identified to have an elevated serum alcohol level of 199 and Dilantin level of 2, subtherapeutic. Diagnosis Primary Impression: Left against medical advice Disposition: AGAINST MEDICAL ADVICE Condition: Stable Charlette Estrella MD Feb 14, 2017 02:17
[2017-02-14 02:27] LABS: AUTOMATED NEUTROPHIL # 3.8 TH/MM3 (1.8-7.7); BASOPHIL # 0.1 TH/MM3 (0-0.2); EOSINOPHIL # 0.1 TH/MM3 (0-0.4); EOSINOPHIL % 1.6 % (0.0-4.0); HEMATOCRIT 41.3 % (35.0-46.0); LYMPH % 35.9 % (9.0-44.0); LYMPHOCYTE # 2.5 TH/MM3 (1.0-4.8); MEAN CELL VOLUME 94.9 FL (80.0-100.0); MEAN CORPUSCULAR HEMOGLOBIN 30.9 PG (27.0-34.0); MEAN CORPUSCULAR HGB CONC 32.5 % (32.0-36.0); NEUT % 56.5 % (16.0-70.0); PLATELET COUNT 75 TH/MM3 (150-450); RED BLOOD COUNT 4.35 MIL/MM3 (4.00-5.30); RED CELL DISTRIBUTION WIDTH 13.1 % (11.6-17.2); WHITE BLOOD COUNT 6.8 TH/MM3 (4.0-11.0)
[2017-02-14 02:28] LABS: HEMO FLAGS AUTO DIFF
[2017-02-14 02:32] LABS: CHLORIDE 112 MEQ/L (98-107); POTASSIUM 3.5 MEQ/L (3.5-5.1); SODIUM (NA) 142 MEQ/L (136-145)
[2017-02-14 02:35] LABS: ANION GAP 8 MEQ/L (5-15); BICARBONATE 22.1 MEQ/L (21.0-32.0); MAGNESIUM 2.4 MG/DL (1.5-2.5)
[2017-02-14 02:36] LABS: BLOOD UREA NITROGEN 15 MG/DL (7-18)
[2017-02-14 02:38] LABS: ALT (GPT) 15 U/L (10-53); AST (GOT) 17 U/L (15-37)
[2017-02-14 02:39] LABS: ALCOHOL 199 MG/DL (0-5); GLOMERULAR FILTRATION RATE 88 ML/MIN (>89)
[2017-02-14 02:40] LABS: TOTAL BILIRUBIN ADULT 0.1 MG/DL (0.2-1.0)
[2017-02-14 02:41] LABS: ALKALINE PHOSPHATASE 120 U/L (45-117)
[2017-02-14 02:44] LABS: PLATELET ESTIMATE SMEAR LOW (NORMAL); PLATELET MORPHOLOGY GIANT (NORMAL); SCAN/DIFF AUTO DIFF CONFIRMED
== END 2017-02-14 03:25 | disposition left against medical advice (07) ==
LOC: PHED 01:58
DX: Z53.29 Procedure and treatment not carried out because of patient's decision for other reasons (principal); G40.909 Epilepsy, unspecified, not intractable, without status epilepticus; T42.0X6A Underdosing of hydantoin derivatives, initial encounter; E72.20 Disorder of urea cycle metabolism, unspecified; F17.200 Nicotine dependence, unspecified, uncomplicated; Y90.6 Blood alcohol level of 120-199 mg/100 ml; Z86.2 Personal history of diseases of the blood and blood-forming organs and certain disorders involving the immune mechanism; Z86.59 Personal history of other mental and behavioral disorders; Z87.19 Personal history of other diseases of the digestive system; Z87.39 Personal history of other diseases of the musculoskeletal system and connective tissue; Z86.69 Personal history of other diseases of the nervous system and sense organs; Z72.89 Other problems related to lifestyle
CPT/HCPCS: 80053; 80185; 80307; 82140; 83735; 85025; 99283